=== PATIENT | female | born 1985 | race Caucasian/White ===

== ENCOUNTER 2024-05-03 19:56 | Emergency (ER) | payer SELFPAY ==
--- OUTSIDE RECORDS SUMMARY | 2024-05-03 20:01 | XMS_ITS | Clinical Summary ---
Author Organization [facility] Address [address] [place] [address] Care Team Providers Care Concrete Batch Plant Operator Name Role Phone Shannon Romero Dave NOLAN-WINE SPECIALIST Primary Care Provider [phone] Source Comments [facility],non-owned Affiliates and Associated Physician Practices is amultiple site organization consisting of ambulatory clinics and hospital sitesin [place], [place], [place] and [place]. This disclosure is being madepursuant to the Care Everywhere program and may not contain all information available regarding this patient. Last updated 17.[facility] Allergies Active Allergy Reactions Criticality Noted Date Comments Iodine Diarrhea,Rash,Nausea and/or Vomiting,Swelling Low 08/14/2012 Medications * Be aware that medications may not be up to date on this document. Alwaysverify current medications with the patient. Medication Sig Dispensed Refills Start Date End Date Status amLODIPine (Norvasc) 5 MG tablet Take 1 (one) tablet by mouth once daily Active hydroCHLOROthiazide (Hydrodiuril) 25 MG tablet Take 1 (one) tablet by mouth once daily Active naproxen (Naprosyn) 500 MG tablet Take 1 (one) tablet by mouth 2 times daily as needed for Pain 10 tablet 04/08/2022 Active clonazePAM (KlonoPIN) 0.5 MG tabletIndications:Anx iety Take 1 (one) tablet by mouth 2 times daily as needed for Anxiety 30 tablet 1 08/19/2023 Active desvenlafaxine succinate ER 24hr (Pristiq) 100 MG tabletIndications:Bip olar 1 disorder, depressed, full remission (HCC) Take 1 (one) tablet by mouth once daily 30 tablet 11 08/19/2023 Active lamoTRIgine (LaMICtal) 100 MG tabletIndications:Bip olar 1 disorder, depressed, full remission (HCC) 2 TAB AT BEDTIME 60 tablet 11 08/19/2023 Active Active Problems Problem Noted Date Diagnosed Date Bipolar affective disorder, currently manic, mod erate 01/20/2019 Allergic rhinitis 08/14/2012 Immunizations Name Administration Dates Next Due INFLUENZA VACCINE 01/09/2012,01/20/2011 INFLUENZA VACCINE, QUADR. (F LUZONE; FLULAVAL; FLUARIX; AFLURIA QUADRIVALENT; 6MO+), 0.5 ML (IIV4) 01/21/2019 MMR 01/09/2012 TDAP (7yrs+) 10/07/2011 Family History Medical History Relation Name Comments Cancer - Prostate Maternal Grandfather Diabetes Maternal Grandmother Diabetes Mother Heart Disease Mother Hypertension Mother Heart Disease Paternal Grandfather Cancer - Other Paternal Grandmother uteri ne Relation Name Status Comments Maternal Grandfather Maternal Grandmother Mother Alive Paternal Grandfather Paternal Grandmother Social History Tobacco Use Types Packs/Day Years Used Date Smoking Tobacco: Never Smokeless Tobacco: Never Tobacco Cessation:Counseling Given: Yes Comments:nonsmoker Alcohol Use Standard Drinks/Week Comments No 0 (1 standard drink = 0.6 oz pur e alcohol) doesn't drink Sex and Gender Information Value Date Recorded Sex Assigned at Not on file Gender Identity Not on file Sexual Orientation Not on file Last Filed Vital Signs Vital Sign Reading Time Taken Comments Blood Pressure 136/85 02/12/2023 12:58 PM TRANSIT MIXER OPERATOR Pulse 86 02/12/2023 12:58 PM TRANSIT MIXER OPERATOR Temperature 36.9 ??C (98.5 ??F) 04/08/2022 5:30 PM CS T Respiratory Rate 18 04/08/2022 5:30 PM TRANSIT MIXER OPERATOR Oxygen Saturation 99% 04/08/2022 5:30 PM TRANSIT MIXER OPERATOR Inhaled Oxygen Concentration - - Weight 137.9 kg (304 lb) 08/19/2023 3:16 PM CDT Height 172.7 cm (5' 8 ) 04/08/2022 5:30 PM TRANSIT MIXER OPERATOR Body Mass Index 46.22 04/08/2022 5:30 PM TRANSIT MIXER OPERATOR Plan of Treatment Upcoming Encounters Date Type Department Care Team (Late st Contact Info) Description 08/17/2024 1:00 PM CDT Office Visit [facility] Behavioral Health [address] [place] [address] Ricki Dalal MD [address] [place] [address] Bernie Reynolds, CHAIN BUILDER-WINE SPECIALIST [address] [place] [address] Health Maintenance Due Date Last Done Comments HIV SCREENING 09/18/2002 HEPATITIS C SCREENING 09/14/2005 HEPATITIS B VACCINE (1 of 3 - 19+ 3-dose series) 09/18/2006 PAP SMEAR 02/21/2016 02/20/2013 (Prev iously completed), 02/21/2012 (Previously completed) DTAP/TDAP/TD VACCINES (2 - Td or Tdap) 10/06/2021 10/07/2011 COVID-19 VACCINE ( - season) 2023 INFLUENZA VACCINE (#1) 2023 9, 02/13/2016, 01/09/2012, Additional history exists ZOSTER VACCINE (1 of 2) 09/18/2037 HIB VACCINE Aged Out No longer eligi ble based on patient's age to complete this topic HPV VACCINE Aged Out No longer eligi ble based on patient's age to complete this topic MENINGOCOCCAL (Group B) VACCINE Aged Out No longer eligible based on patient's age to complete this topic MENINGOCOCCAL VACCINE Aged Out No jose antonio mary ellen eligible based on patient's age to complete this topic PNEUMOCOCCAL VACCINE Aged Out No long er eligible based on patient's age to complete this topic Advance Directives * Full Code (Latest Code Status on File) Date Activated Date Inactivated Comments 01/20/2019 9:14 PM 01/27/2019 2:23 PM Care Teams Concrete Batch Plant Operator Relationship Specialty Start Date End Date Shannon Romero APRN-WINE SPECIALIST [address] [place] [id number] PCP - General Nurse Practitioner 04/05/16
--- OUTSIDE RECORDS SUMMARY | 2024-05-03 20:01 | XMS_ITS | Referral Summary ---
Author Organization [facility] Address [address] [place] [address] Care Team Providers Care Senior Technical Manager Name Role Phone Shannon Romero Dave NOLAN-PRODUCTION WEIGHER Primary Care Provider [phone] Source Comments [facility],non-owned Affiliates and Associated Physician Practices is amultiple site organization consisting of ambulatory clinics and hospital sitesin [place], [place], [place] and [place]. This disclosure is being madepursuant to the Care Everywhere program and may not contain all information available regarding this patient. Last updated 17.[facility] [employer] Allergies Active Allergy Reactions Criticality Noted Date [...] (IIV4) 01/21/2019 MMR 01/09/2012 TDAP (7yrs+) 10/07/2011 Social History Tobacco Use Types Packs/Day Years [...] Comments Blood Pressure 136/85 02/12/2023 12:58 PM CORPORATE FINANCIAL ANALYST Pulse 86 02/12/2023 12:58 PM CORPORATE FINANCIAL ANALYST Temperature 36.9 ??C (98.5 ??F) 04/08/2022 5:30 PM CS T Respiratory Rate 18 04/08/2022 5:30 PM CORPORATE FINANCIAL ANALYST Oxygen Saturation 99% 04/08/2022 5:30 PM CORPORATE FINANCIAL ANALYST Inhaled Oxygen Concentration - - Weight 137.9 kg (304 lb) 08/19/2023 3:16 PM CDT Height 172.7 cm (5' 8 ) 04/08/2022 5:30 PM CORPORATE FINANCIAL ANALYST Body Mass Index 46.22 04/08/2022 5:30 PM CORPORATE FINANCIAL ANALYST Functional Status Functional Status Response Date of Assess ment Is person deaf or have serious hearing difficult y? No 01/27/2019 Is person blind or have serious difficulty seein g? No 01/27/2019 Does person have serious dif ficulty walking/climbing stairs? No 01/27/2019 Does person have difficulty dressing/bathing? No 01/27/2019 Does person have difficulty doing errands alone? No 01/27/2019 Cognitive Status Response Date of Assessm ent Does person have difficulty concentrating/remembering/making decisions? No 01/27/2019 Plan of Treatment Upcoming Encounters Date Type Department Care Team (Late st Contact Info) Description 08/17/2024 1:00 PM CDT Office Visit [facility] [address] [place] [phone] Ricki Dalal MD [address] [place] [phone] Bernie Reynolds APRN-CNP [address] [place], [place] [id number] Advance Directives * Full Code (Latest Code Status on File) Date Activated Date Inactivated Comments 01/20/2019 9:14 PM 01/27/2019 2:23 PM Care Teams Senior Technical Manager Relationship Specialty Start Date End Date Shannon Romero APRN-PRODUCTION WEIGHER [address] [place] [address] PCP - General Nurse Practitioner 04/05/16
--- OUTSIDE RECORDS SUMMARY | 2024-05-03 20:01 | XMS_ITS | Patient Health Summary ---
Author Organization [facility] Address [address] [place] [address] Care Team Providers Care Weapons Specialist Name Role Phone Shannon Romero Dave NOLAN-PIGMENT MIXER Primary Care Provider [phone] Note from [facility],non-owned Affiliates and Associated Physician Practices is amultiple site organization consisting of ambulatory clinics and hospital sitesin [place], [place], [place] and [place]. This disclosure is being madepursuant to the Care Everywhere program and may not contain all information available regarding this patient. Last updated 17.[facility] Allergies * Iodine(Diarrhea,Rash,Nausea and/or Vomiting,Swelling) -Low Criticality Medications * Be aware that medications may not be up to date on this document. Alwaysverify current medications with the patient. * amLODIPine (Norvasc) 5 MG tablet Take 1 (one) tablet by mouth once daily * hydroCHLOROthiazide (Hydrodiuril) 25 MG tablet Take 1 (one) tablet by mouth once daily * naproxen (Naprosyn) 500 MG tablet(Started 04/08/2022) Take 1 (one) tablet by mouth 2 times daily as needed for Pain * clonazePAM (KlonoPIN) 0.5 MG tablet(Started 08/19/2023) Take 1 (one) tablet by mouth 2 times daily as needed for Anxiety 1 refill by 02/15/2024 * desvenlafaxine succinate ER 24hr (Pristiq) 100 MG tablet(Started 08/19/2023) Take 1 (one) tablet by mouth once daily 11 refills by 08/18/2024 * lamoTRIgine (LaMICtal) 100 MG tablet(Started 08/19/2023) 2 TAB AT BEDTIME 11 refills by 08/18/2024 Active Problems Problem Noted Date Diagnosed Date Bipolar affective disorder, currently manic, mod erate 01/20/2019 Allergic rhinitis 08/14/2012 Immunizations * INFLUENZA VACCINE(Given 01/09/2012, 01/20/2011) * INFLUENZA VACCINE, QUADR. (FLUZONE; FLULAVAL; FLUARIX; AFLURIA QUADRIVALENT; 6MO+), 0.5 ML (IIV4)(Given 01/21/2019) * MMR(Given 01/09/2012) * TDAP (7yrs+)(Given 10/07/2011) Social History Tobacco Use Types Packs/Day Years [...] Comments Blood Pressure 136/85 02/12/2023 12:58 PM DROP HAMMER PILE DRIVER OPERATOR Pulse 86 02/12/2023 12:58 PM DROP HAMMER PILE DRIVER OPERATOR Temperature 36.9 ??C (98.5 ??F) 04/08/2022 5:30 PM CS T Respiratory Rate 18 04/08/2022 5:30 PM DROP HAMMER PILE DRIVER OPERATOR Oxygen Saturation 99% 04/08/2022 5:30 PM DROP HAMMER PILE DRIVER OPERATOR Inhaled Oxygen Concentration - - Weight 137.9 kg (304 lb) 08/19/2023 3:16 PM CDT Height 172.7 cm (5' 8 ) 04/08/2022 5:30 PM DROP HAMMER PILE DRIVER OPERATOR Body Mass Index 46.22 04/08/2022 5:30 PM DROP HAMMER PILE DRIVER OPERATOR Procedures * XR ANKLE RIGHT 3VW OR MORE(Performed 04/08/2022) Performed for Fall, initial encounter * XR FOOT RIGHT 3VW OR MORE(Performed 04/08/2022) Performed for Fall, initial encounter * SARS-COV-2 (COVID-19) IN HOUSE(Performed 10/11/2019) Performed for Exposure to SARS-associated coronavirus * LITHIUM LEVEL(Performed 01/25/2019) * HEMOGLOBIN A1C(Performed 01/22/2019) * LIPID PROFILE(Performed 01/22/2019) * TSH(Performed 01/20/2019) * SALICYLATE LEVEL BLOOD(Performed 01/20/2019) * COMPREHENSIVE METABOLIC PANEL(Performed 01/20/2019) * CBC W AUTO DIFFERENTIAL(Performed 01/20/2019) * ALCOHOL ETHYL BLOOD(Performed 01/20/2019) * ACETAMINOPHEN LEVEL(Performed 01/20/2019) * URINE MICROSCOPIC ONLY REFLEX TO CULTURE(Performed 01/20/2019) * HCG URINE QUALITATIVE(Performed 01/20/2019) * URINALYSIS REFLEX MICROSCOPIC REFLEX CULTURE(Performed 01/20/2019) * DRUG ABUSE URINE SCREEN 10(Performed 01/20/2019) * US PELVIS LIMITED(Performed 04/05/2016) Performed for fever (HCC), Abdominal pain, generalized * URINE MICROSCOPIC ONLY REFLEX TO CULTURE(Performed 04/05/2016) * URINALYSIS REFLEX MICROSCOPIC REFLEX CULTURE(Performed 04/05/2016) * CULTURE URINE(Performed 04/05/2016) * CULTURE BLOOD(Performed 04/05/2016) * LACTIC ACID BLOOD(Performed 04/05/2016) * COMPREHENSIVE METABOLIC PANEL(Performed 04/05/2016) * CBC W AUTO DIFFERENTIAL(Performed 04/05/2016) * CULTURE BLOOD(Performed 04/05/2016) * T4 FREE(Performed 07/27/2013) Performed for History of hypothyroidism * TSH(Performed 07/27/2013) Performed for History of hypothyroidism * COMPREHENSIVE METABOLIC PANEL(Performed 07/27/2013) Performed for Fatigue * CBC W AUTO DIFFERENTIAL(Performed 07/27/2013) Performed for Fatigue Results * XR ANKLE RIGHT 3VW OR MORE (04/08/2022 6:18 PM DROP HAMMER PILE DRIVER OPERATOR) Anatomical Region Laterality Modality Lower Extremity Radiographic Mariann ging 04/08/2022 6:31 PM DROP HAMMER PILE DRIVER OPERATOR Narrative 04/08/2022 6:33 PM DROP HAMMER PILE DRIVER OPERATOR PROCEDURE(s): XR FOOT RIGHT 3VW OR MORE, XR ANKLE RIGHT 3VW OR MORE; DATE AND TIME OF EXAM(s): 04/08/2022 6:18 PM; LOCATION: [facility] INDICATION(s): W19.XXXA: Unspecified fall, initial encounter. Right ankle and foot pain. COMPARISON(s): None available. FINDINGS/IMPRESSION: No acute fracture or dislocation is seen. No significant osteoarthritic degenerative changes are seen. The soft tissues are unremarkable. > Interpreting Provider: Giancarlo Heart MD on 04/08/2022 6:33 PM Procedure Note Giancarlo Heart MD - 04/08/2022 PROCEDURE(s): XR FOOT RIGHT 3VW OR MORE, XR ANKLE RIGHT 3VW OR MORE;DATE AND TIME OF EXAM(s): 04/08/2022 6:18 PM; LOCATION: [facility] INDICATION(s): W19.XXXA: Unspecified fall, initial encounter. Right ankle and footpain. COMPARISON(s): None available. FINDINGS/IMPRESSION: No acute fracture or dislocation is seen. No significant osteoarthritic degenerative changes are seen. The soft tissues are unremarkable. > Interpreting Provider: Giancarlo Heart MD on 04/08/2022 6:33 PM Brittany Tian PA-C DIAGNOSTIC IMAGI NG ORDERABLES * XR FOOT RIGHT 3VW OR MORE (04/08/2022 6:10 PM DROP HAMMER PILE DRIVER OPERATOR) Anatomical Region Laterality Modality Ankle / Foot Radiographic Mariann ging 04/08/2022 6:31 PM DROP HAMMER PILE DRIVER OPERATOR Narrative 04/08/2022 6:33 PM DROP HAMMER PILE DRIVER OPERATOR PROCEDURE(s): XR FOOT RIGHT 3VW OR MORE, XR ANKLE RIGHT 3VW OR MORE; DATE AND TIME OF EXAM(s): 04/08/2022 6:18 PM; LOCATION: [facility] INDICATION(s): W19.XXXA: Unspecified fall, initial encounter. Right ankle and foot pain. COMPARISON(s): None available. FINDINGS/IMPRESSION: No acute fracture or dislocation is seen. No significant osteoarthritic degenerative changes are seen. The soft tissues are unremarkable. > Interpreting Provider: Giancarlo Heart MD on 04/08/2022 6:33 PM Procedure Note Giancarlo Heart MD - 04/08/2022 PROCEDURE(s): XR FOOT RIGHT 3VW OR MORE, XR ANKLE RIGHT 3VW OR MORE;DATE AND TIME OF EXAM(s): 04/08/2022 6:18 PM; LOCATION: [facility] INDICATION(s): W19.XXXA: Unspecified fall, initial encounter. Right ankle and footpain. COMPARISON(s): None available. FINDINGS/IMPRESSION: No acute fracture or dislocation is seen. No significant osteoarthritic degenerative changes are seen. The soft tissues are unremarkable. > Interpreting Provider: Giancarlo Heart MD on 04/08/2022 6:33 PM Brittany Tian PA-C DIAGNOSTIC IMAGI NG ORDERABLES * COVID-19 VIRUS (CORONAVIRUS) [facility] MICRO (10/11/2019 1:51 PM CDT) COVID-19 PCR Not detected Not detected, Invalid 10/13/2019 5:16 PM CDT [facility] Microbiology SPECIMEN FROM NASOPHARYNGEAL STRUCTURE / Unknown Collection / Unknown 10/11/2019 1:51 PM CDT 10/11/2019 1:51 PM CDT Narrative [facility] - 10/13/2019 5:16 PM CDT This nucleic acid amplification assay performance was validated by [facility]. This test has been authorized by the Food and Drug administration (FDA)under an Emergency??Use Authorization (EUA). This test has been validated in accordance with the FDA's guidance document Policy for Diagnostic Testing in Laboratories Certified to perform High Complexity Testing under CLIA prior to Emergency Use Authorization for Coronavirus Disease-2019 during the Public Health Emergency issued on June 06, 2019. FDA independent review of this validation is pending. This test is only authorized for the duration of time the declaration that circumstances exist justifying the authorization of emergency use of in vitro diagnostic tests for detection of SARS-CoV-2 virus and/or diagnosis of COVID-19 infection under section 564(b)(1) of the Act, 21 U.S.C 360bbb-3 (b)(1), unless the authorization is terminated or revoked sooner. Roscoe Mantilla PA-C LAB - MICROBIOLOGY O RDERABLES [facility] [address] [place], [place] [address], [facility] [phone] * (ABNORMAL) LITHIUM LEVEL (01/25/2019 6:23 AM CDT) [place] 0.4(L) 0.6 - 1.2 mmol/L 01/25/2019 6:50 AM CDT [facility] Blood BLOOD SPECIMEN / Unknown Lab Venipuncture / Unknown 01/25/2019 6:23 AM CDT 01/25/2019 6:30 AM CDT Sarah Eddy MD LAB - CHEMISTRY [facility] Organization Address City/State/ZIP Co de Phone Number [facility] [address] * HEMOGLOBIN A1C (01/22/2019 6:35 AM CDT) Hemoglobin A1c 5.2 4.2 - 5.6 % 01/22/2019 7:17 AM CDT [facility] Estimated Average Glucose 103 mg/dL 01/22/2019 7:17 AM CDT [facility] Blood BLOOD SPECIMEN / Unknown Lab Venipuncture / Unknown 01/22/2019 6:35 AM CDT 01/22/2019 7:05 AM CDT Narrative [facility] - 01/22/2019 7:17 AM CDT The following cutoff levels are recommended by [place] [employer]. ?? A1c ??> 6.5% : considered as diabetes if two separate tests >6.5% or in an appropriate clinical setting. A1c ??5.7% - 6.4% : considered as prediabetes (suggest increased risk for diabetes and cardiovascular disease) Control target level: ??Should be individualized. ??< 7 ??for general (non- ) , ??< 8% less stringent goal, ??< 6.5 ??more stringent goal. Hemoglobin A1c measurements are used as an aid in the diagnosis of diabetic mellitus, as an aid to identify patients who may be at the risk for developing diabetic mellitus, and for the monitoring long-term blood glucose control in individuals with diabetes mellitus. ??This test should not replace glucose testing for patients with Type 1 diabetes, pediatric patients, or women. ??Falsely low HbA1c results may be observed in patients with clinical conditions that shorten erythrocyte life span or decrease mean erythrocyte age such as the presence of unstable hemoglobin variants, elevated hemoglobin F level ??or other causes of hemolytic anemia . ??HbA1c may not accurately reflect glycemic control when clinical conditions that affect erythrocyte survival are present. ??Severe Iron deficiency anemia may yield falsely high results. ??Hemoglobin A1c assay should not be used to diagnose or monitor diabetes in patients with malignancy, recent blood transfusion, chronic kidney or liver disease and interpretation. ?? This method may yield falsely low results when hemoglobin (HbF) exceeds 5% in the specimen. Sarah Eddy MD LAB - CHEMISTRY [facility] Organization Address City/State/[facility] Co de Phone Number [facility] [address] * LIPID PROFILE (01/22/2019 6:35 AM CDT) [facility] Cholesterol 183 <200 mg/dL 01/22/2019 7:31 AM T [facility] Triglycerides 86 <150 mg/dL 01/22/2019 7:31 AM CDT [facility] HDL Cholesterol 70 >40 mg/dL 9 7:31 AM T [facility] Chol HDL Ratio 2.6 1.0 - 6.0 01/22/2019 7:31 AM T [facility] LDL Calculated 96 65 - 130 mg/dL 01/22/2019 7:31 AM T [facility] VLDL Calculated 17 10 - 40 mg/dL 01/22/2019 7:31 AM T [facility] Blood BLOOD SPECIMEN / Unknown Lab Venipuncture / Unknown 01/22/2019 6:35 AM CDT 01/22/2019 7:05 AM CDT Narrative [facility] - 01/22/2019 7:31 AM CDT Lipid Profile Comment: CHOLESTEROL LEVEL..................CLINICAL INTERPRETATION LESS THAN 200 MG/DL..............................DESIRABLE 200-239 MG/DL..............................BORDERLINE HIGH GREATER THAN 240 MG/DL................................HIGH LDL-CHOLESTEROL LEVEL..............CLINICAL INTERPRETATION LESS THAN 100 MG/DL................................OPTIMAL 100-129 MG/DL.................................NEAR OPTIMAL GREATER THAN 160 MG/DL...........................HIGH RISK HDL RISK LEVEL GREATER THEN 60 MG/DL............................DECREASED 40-60 MG/DL........................................AVERAGE LESS THAN 40 MG/DL...............................INCREASED TRIGLYCERIDE LEVEL..................CLINICAL INTERPRETATION LESS THAN 150 MG/DL...............................DESIRABLE 150-199 MG/DL...............................BORDERLINE HIGH 200-499 MG/DL..........................................HIGH GREATER THAN 500..................................VERY HIGH THE NATIONAL CHOLESTEROL EDUCATION PROGRAM HAS SET THE ABOVE GUIDELINES (REFERANCE VALUES) FOR CHOLESTEROL AND HDL. RISK ASSOCIATED WITH CHOLESTEROL/HDL RATIOS RISK....................MALE RATIO.............FEMALE RATIO 1/2 AVERAGE.................<3.4.......................<3.3 LOW RISK.................... 4.0 ...................... 3.8 AVERAGE..................... 5.0 ...................... 4.5 2X AVERAGE.................. 9.5 ...................... 7.0 3X AVERAGE...................>23........................>11 Sarah Eddy MD LAB - CHEMISTRY [facility] Organization Address City/State/[facility] Co de Phone Number [facility] [address] * (ABNORMAL) CBC W AUTO DIFFERENTIAL (01/20/2019 7:23 PM CDT) Only the most recent of3 resultswithin the time period is included. [facility] WBC 9.7 4.0 - 10.0 x10E9/L 01/20/2019 7:36 PM CDT [facility] RBC 4.63 3.93 - 5.22 x10E12/L 01/20/2019 7:36 PM CDT [facility] Hemoglobin 13.3 11.2 - 15.7 gm/dL 01/20/2019 7:36 PM CDT [facility] Hematocrit 40.0 34.1 - 44.9 % 01/20/2019 7:36 PM [facility] MCV 86.4 78.0 - 100.0 fl 01/20/2019 7:36 PM [facility] MCH 28.7 25.6 - 34.0 pg 01/20/2019 7:36 PM [facility] MCHC 33.3 32.3 - 36.5 gm/dL 01/20/2019 7:36 PM [facility] RDW 13.5 11.6 - 14.4 % 01/20/2019 7:36 PM [facility] MPV 9.5 9.4 - 12.4 fl 01/20/2019 7:36 PM [facility] Platelet Count 302 163 - 369 x10E9/L 01/20/2019 7:36 PM [facility] Neutrophils % 65.7 40.0 - 75.0 % 01/20/2019 7:36 PM [facility] Lymphocytes % 26.1 19.3 - 53.1 % 01/20/2019 7:36 PM [facility] Monocytes % 6.3 4.7 - 12.5 % 01/20/2019 7:36 PM [facility] Eosinophils % 1.4 0.7 - 7.0 % 01/20/2019 7:36 PM [facility] Basophils % 0.3 0.1 - 1.2 % 01/20/2019 7:36 PM [facility] Immature Granulocytes 0.2 0 - 0.5 % 01/20/2019 7:36 PM [facility] Neutrophil Absolute 6.35(H) 1.56 - 6.13 x10E9/L 01/20/2019 7:36 PM [facility] Lymphocytes Absolute 2.52 1.18 - 3.74 x10E9/L 01/20/2019 7:36 PM [facility] Monocytes Absolute 0.61 0.24 - 0.86 x10E9/L 01/20/2019 7:36 PM [facility] Eosinophils Absolute 0.14 0.04 - 0.54 x10E9/L 01/20/2019 7:36 PM [facility] Basophils Absolute 0.03 0.01 - 0.08 x10E9/L 01/20/2019 7:36 PM [facility] Immature Granulocytes Absolute 0.02 0 - 0.03 x10E9/L 01/20/2019 7:36 PM CDT [facility] nRBC Auto 0 <=0 /100 WBC 01/20/2019 7:36 PM CDT [facility] nRBC Absolute 0.00 <=0 x10E9/L 01/20/2019 7:36 PM T [facility] Blood BLOOD SPECIMEN / Unknown Lab Venipuncture / Unknown 01/20/2019 7:23 PM CDT 01/20/2019 7:28 PM CDT Josefina Harman MD LAB - HEMATOLOGY ORDERABLES [facility] [address] * COMPREHENSIVE METABOLIC PANEL (01/20/2019 7:23 PM CDT) Only the most recent of3 resultswithin the time period is included. Glucose 108 70 - 125 mg/dL 01/20/2019 7:51 PM [facility] Sodium 141 136 - 145 mmol/L 01/20/2019 7:51 PM [facility] Potassium 4.0 3.4 - 4.5 mmol/L 01/20/2019 7:51 PM T [facility] Chloride 107 98 - 107 mmol/L 01/20/2019 7:51 PM T [facility] CO2 23 22 - 29 mmol/L 01/20/2019 7:51 PM T [facility] Calcium 9.3 8.4 - 10.2 mg/dL 01/20/2019 7:51 PM [facility] Anion Gap 15 10 - 20 mmol/L 01/20/2019 7:51 PM [facility] BUN 15.4 9.8 - 20.1 mg/dL 01/20/2019 7:51 PM T [facility] Creatinine 0.79 0.57 - 1.11 mg/dL 01/20/2019 7:51 PM T [facility] eGFR by MDRD >60 >60 mL/min/1.7 3m2 01/20/2019 7:51 PM T [facility] eGFR by MDRD >60 >60 mL/min/1.7 3m2 01/20/2019 7:51 PM T [facility] Alkaline Phosphatase 106 40 - 150 U/L 01/20/2019 7:51 PM CDT [facility] ALT 15 5 - 55 U/L 01/20/2019 7:51 PM CDT [facility] AST 14 5 - 34 U/L 01/20/2019 7:51 PM CDT [facility] Protein Total 7.1 6.4 - 8.3 gm/dL 01/20/2019 7:51 PM CDT [facility] Albumin 4.1 3.5 - 5.0 gm/dL 01/20/2019 7:51 PM CDT [facility] Globulin Total 3.0 2.6 - 4.0 gm/dL 01/20/2019 7:51 PM CDT [facility] Albumin/Globulin Ratio 1.4 0.9 - 1.6 01/20/2019 7:51 PM CDT [facility] Bilirubin Total 0.3 0.2 - 1.2 mg/dL 01/20/2019 7:51 PM CDT [facility] Blood BLOOD SPECIMEN / Unknown Lab Venipuncture / Unknown 01/20/2019 7:23 PM CDT 01/20/2019 7:28 PM CDT Josefina Harman MD LAB - CHEMISTRY ORDERABLES Performing Organization Address [facility] de Phone Number [facility] [address] * ALCOHOL ETHYL BLOOD (01/20/2019 7:23 PM CDT) Pathologist [facility] Ethanol <10.0 <10 mg/dL 01/20/2019 7:5 1 PM CDT [facility] Blood BLOOD SPECIMEN / Unknown Lab Venipuncture / Unknown 01/20/2019 7:23 PM CDT 01/20/2019 7:28 PM CDT Narrative [facility] - 01/20/2019 7:51 PM CDT For Medical Use Only Josefina Harman MD LAB - CHEMISTRY ORDERABLES Performing Organization Address [facility] Co de Phone Number [facility] [address] * TSH (01/20/2019 7:23 PM CDT) Only the most recent of2 resultswithin the time period is included. TSH 0.933 0.35 - 4.94 uIU/mL 01/20/2019 8:11 PM CDT [facility] Blood BLOOD SPECIMEN / Unknown Lab Venipuncture / Unknown 01/20/2019 7:23 PM CDT 01/20/2019 7:28 PM CDT Josefina Harman MD LAB - CHEMISTRY ORDERABLES Performing Organization Address [facility]/ZIP Co de Phone Number [facility] [address] [place] [address] * (ABNORMAL) SALICYLATE LEVEL BLOOD (01/20/2019 7:23 PM CDT) Salicylate <5.0(L) 15.0 - 30.0 mg/dL 01/20/2019 7:51 PM CDT [facility] Blood BLOOD SPECIMEN / Unknown Lab Venipuncture / Unknown 01/20/2019 7:23 PM CDT 01/20/2019 7:28 PM CDT Josefina Harman MD LAB - CHEMISTRY ORDERABLES Performing Organization Address [facility] Co de Phone Number [facility] [address] [place] [address] * (ABNORMAL) ACETAMINOPHEN LEVEL (01/20/2019 7:23 PM CDT) Acetaminophen <0.6(L) 10.0 - 30.0 ug/mL 01/20/2019 7:51 PM CDT [facility] Blood BLOOD SPECIMEN / Unknown Lab Venipuncture / Unknown 01/20/2019 7:23 PM CDT 01/20/2019 7:28 PM CDT Narrative [facility] - 01/20/2019 7:51 PM CDT Significantly reduced Acetaminophen recovery has been demonstrated in situations where testing has been performed immediately after introduction of N- acetylcysteine (NAC). Josefina Harman MD LAB - CHEMISTRY ORDERABLES Performing Organization Address [facility]/ZIP Co de Phone Number [facility] [address] [place] [address] * DRUG ABUSE URINE SCREEN 10 (01/20/2019 6:41 PM CDT) Amphetamines Screen Urine Negative Negative 01/20/2019 6:58 PM CDT [facility] Barbiturates Screen Urine Negative Negative 01/20/2019 6:58 PM CDT [facility] Benzodiazepines Screen Urine Negative Negative 01/20/2019 6:58 PM CDT [facility] Cannabinoids Screen Urine Negative Negative 01/20/2019 6:58 PM CDT [facility] Cocaine Screen Urine Negative Negative 01/20/2019 6:58 PM CDT [facility] Methadone Screen Urine Negative Negative 01/20/2019 6:58 PM CDT [facility] Opiate Screen Urine Negative Negative 01/20 6:58 PM CDT [facility] Phencyclidine Screen Urine Negative Negative 01/20/2019 6:58 PM CDT [facility] Tricyclics Screen Urine Negative Negative 01/20/2019 6:58 PM CDT [facility] Methamphetamine Screen Urine Negative Negative 01/20/2019 6:58 PM CDT [facility] Buprenorphine Screen Urine Negative Negative 01/20/2019 6:58 PM CDT [facility] Oxycodone Screen Urine Negative Negative 01/20/2019 6:58 PM CDT [facility] Propoxyphene Screen Urine Negative Negative 01/20/2019 6:58 PM CDT [facility] Urine URINE / Unknown Collection / Unknown 01/20/2019 6:41 PM CDT 01/20/2019 6:46 PM CDT Narrative [facility] - 01/20/2019 6:58 PM CDT This is a presumptive/unconfirmed test for medical treatment purposes only. Clinical consideration and professional judgment should be applied when using presumptive results. If confirmatory testing, such as gas chromatography-mass spectrometry (GC/MS), of any positive results of this test is required, please notify the laboratory within 7 days of collection. This test is intended only for monitoring or management of patients. It is not intended for use in job-related and/or legal-related purposes. The cutoff value for each analyte is: Barbiturates.....200 ng/mL ?? Benzodiazepines......150 ng/mL Cocaine..........150 ng/mL ?? Opiates..............100 ng/mL Phencyclidine.....25 ng/mL ?? Tricyclics...........300 ng/mL Cannabinoid.......50 ng/mL ?? Amphetamines.........500 ng/mL Methadone........200 ng/mL ?? Methamphetamines.....500 ng/mL Buprenorphine.....10 ng/mL ?? Oxycodone............100 ng/mL Propoxyphene.....300 ng/mL Josefina Harman MD LAB - URINE CHEM ISTRY ORDERABLES Performing Organization Address [facility] de Phone Number [facility] [facility] [address] * URINE MICROSCOPIC ONLY REFLEX TO CULTURE (01/20/2019 6:41 PM CDT) Only the most recent of2 resultswithin the time period is included. Reflex Status Culture not indicated 01/20/2019 6:54 PM CDT [facility] RBC UA 3-5 None Seen, 0-2, 3-5 # /hpf 01/20/2019 6:54 PM CDT [facility] WBC UA 0-5 None Seen, 0-5 # /hpf 01/20/2019 6:54 PM CDT [facility] Bacteria UA None Seen None Seen 01/20/2019 6:54 PM CDT [facility] Squamous Epithelial Cells 0-2 None Seen, 0-2, 3-5 /hpf 01/20/2019 6:54 PM CDT [facility] Mucus UA 1+ /LPF 01/20/2019 6:54 PM CDT [facility] Urine URINE SPECIMEN OBTAINED BY CLEAN CATCH PROCEDURE / Unknown Collection / Unknown 01/20/2019 6:41 PM CDT 01/20/2019 6:46 PM CDT Narrative [facility] - 01/20/2019 6:54 PM CDT Josefina Harman MD LAB - URINALYSIS ORDERABLES Performing Organization Address [facility] Co de Phone Number [facility] [address] * (ABNORMAL) URINALYSIS REFLEX MICROSCOPIC REFLEX CULTURE (01/20/2019 6:41 PM CDT) Only the most recent of2 resultswithin the time period is included. Color UA Yellow Straw, Yellow 01/20/2019 6:52 PM CDT [facility] Clarity UA Clear Clear 01/20/2019 6:52 PM CDT [facility] Glucose UA Negative Negative 01/20/2019 6:52 PM CDT [facility] Bilirubin UA Negative Negative 01/20/2019 6:52 PM CDT [facility] Ketone UA Negative Negative 01/20/2019 6:52 PM CDT [facility] Specific [place] UA 1.018 1.005 - 1.030 01/20/2019 6:52 PM CDT [facility] Blood UA 1+(A) Negative 01/20/2019 6:52 PM CDT [facility] pH UA 6.0 5.0 - 8.0 pH 01/20/2019 6:52 PM CDT [facility] Protein UA Negative Negative 01/20/2019 6:52 PM CDT [facility] Urobilinogen UA Negative Negative mg/dL 01/20/2019 6:52 PM CDT [facility] Nitrite UA Negative Negative 01/20/2019 6:52 PM CDT [facility] Leukocyte UA Negative Negative 01/20/2019 6:52 PM CDT [facility] Urine Microscopy Urine microscopy to follow 01/20/2019 6:52 PM CDT [facility] Urine URINE SPECIMEN OBTAINED BY CLEAN CATCH PROCEDURE / Unknown Collection / Unknown 01/20/2019 6:41 PM CDT 01/20/2019 6:46 PM CDT Narrative [facility] - 01/20/2019 6:52 PM CDT Josefina Harman MD LAB - URINALYSIS ORDERABLES Performing Organization Address City/State/[facility] de Phone Number [facility] [address] * HCG URINE QUALITATIVE (01/20/2019 6:41 PM CDT) hCG Qualitative Urine Negative Negative 01/20/2019 6:52 PM CDT [facility] Specific [place] UA 1.018 1.005 - 1.030 01/20/2019 6:52 PM CDT [facility] Urine URINE / Unknown Collection / Unknown 01/20/2019 6:41 PM CDT 01/20/2019 6:46 PM CDT Josefina Harman MD LAB - URINALYSIS ORDERABLES [facility] [address] [place], [place] [id number] [place] [address] * US PELVIS LIMITED [id number] (04/05/2016 5:46 AM DROP HAMMER PILE DRIVER OPERATOR) Anatomical Region Laterality Modality Pelvis Ultrasound 04/05/2016 6:09 AM DROP HAMMER PILE DRIVER OPERATOR Impressions 04/05/2016 7:31 AM DROP HAMMER PILE DRIVER OPERATOR Negative pelvic sonogram. Narrative 04/05/2016 7:31 AM DROP HAMMER PILE DRIVER OPERATOR ULTRASOUND PELVIS 04/05/2016 CLINICAL HISTORY: fever. Multiple transverse and longitudinal sonographic images were obtained. FINDINGS: No evidence of retained products within the uterus. No abnormalities noted within the uterus. No free fluid. No adnexal mass lesion. Procedure Note Jazmin Gamboa MD - 04/05/2016 ULTRASOUND PELVIS 04/05/2016 CLINICAL HISTORY: fever. Multiple transverse and longitudinal sonographic images were obtained. FINDINGS: No evidence of retained products within the uterus. No abnormalities noted within the uterus. No free fluid. No adnexal mass lesion. IMPRESSION Negative pelvic sonogram. Josefina Harman MD ORDERABLES * (ABNORMAL) CULTURE URINE (04/05/2016 4:28 AM DROP HAMMER PILE DRIVER OPERATOR) Culture 10,000-50,000 CFU/mL Escherichia coli(A) AUTUMN 04/07/2016 10:10 AM DROP HAMMER PILE DRIVER OPERATOR [facility] Urine URINE SPECIMEN OBTAINED BY CLEAN CATCH PROCEDURE / Unknown 04/05/2016 4:28 AM DROP HAMMER PILE DRIVER OPERATOR 04/05/2016 4:37 AM DROP HAMMER PILE DRIVER OPERATOR Narrative Organism Antibiotic Method Susceptibility Escherichia coli Ampicillin AUTUMN >16 ug/mL: Resistant Escherichia coli Cefazolin AUTUMN <=8 ug/mL: Susceptible Escherichia coli Cefoxitin AUTUMN <=8 ug/mL: Susceptible Escherichia coli Ceftriaxone AUTUMN <=1 ug/mL: Susceptible Escherichia coli Cefuroxime AUTUMN <=4 ug/mL: Susceptible Escherichia coli Ciprofloxacin AUTUMN <=1 ug/mL: Susceptible Escherichia coli Gentamicin AUTUMN <=4 ug/mL: Susceptible Escherichia coli Levofloxacin AUTUMN <=2 ug/mL: Susceptible Escherichia coli Nitrofurantoin AUTUMN <=32 ug/mL: Susceptible Escherichia coli Trimethoprim-sulfamethoxazole AUTUMN <=2 ug/mL: Susceptible Josefina Harman MD LAB - MICROBIOLO GY ORDERABLES Performing Organization Address [facility] de Phone Number [facility] [address] [place] [address] * (ABNORMAL) CULTURE BLOOD (04/05/2016 4:21 AM DROP HAMMER PILE DRIVER OPERATOR) Only the most recent of2 resultswithin the time period is included. [facility] Culture Staphylococcus species (Coagulase Negative)(AA) AUTUMN 04/08/2016 2:03 PM DROP HAMMER PILE DRIVER OPERATOR [facility] Comment:PC Gram Stain Gram positive cocci 04/08/2016 2:03 PM [facility] Blood PERIPHERAL BLOOD / Unknown Lab Venipuncture / Unknown 04/05/2016 4:21 AM DROP HAMMER PILE DRIVER OPERATOR 04/05/2016 4:24 AM DROP HAMMER PILE DRIVER OPERATOR Narrative [facility] - 04/08/2016 2:03 PM DROP HAMMER PILE DRIVER OPERATOR 04/06/2016 10:27 AM ?? Verenice Katya RN notified of gpc. ??Read back and acknowledged results. Josefina Harman MD LAB - MICROBIOLO GY ORDERABLES Performing Organization Address [facility] de Phone Number [facility] [address] [place] [address] * LACTIC ACID BLOOD (04/05/2016 4:18 AM DROP HAMMER PILE DRIVER OPERATOR) [facility] Lactic Acid 0.65 0.5 - 2.2 mmol/L 04/05/2016 4:48 AM [facility] Blood BLOOD SPECIMEN / Unknown Lab Venipuncture / Unknown 04/05/2016 4:18 AM DROP HAMMER PILE DRIVER OPERATOR 04/05/2016 4:24 AM DROP HAMMER PILE DRIVER OPERATOR Josefina Harman MD LAB - CHEMISTRY ORDERABLES Performing Organization Address [facility] de Phone Number [address] * T4 FREE (07/27/2013 11:57 AM CDT) [facility] T4 Free 1.25 0.82 - 1.77 ng/dL [facility] ACCOUNT BILL Blood specimen (specimen) BLOOD SPECIMEN / Unknown 07/27/2013 11:57 AM CDT 07/27/2013 8:04 PM CDT Narrative Resulting Agency Comment [facility] [address] ??[facility] [phone] Katina Cooley APRN-PIGMENT MIXER LAB - CHEMISTRY OR DERABLES [facility] ACCOUNT BILL Care Teams Weapons Specialist Relationship Specialty Start Date End Date Shannon Romero APRN-PIGMENT MIXER [address] [place] [id number] PCP - General Nurse Practitioner 04/05/16
--- OUTSIDE RECORDS SUMMARY | 2024-05-03 20:01 | XMS_ITS | Clinical Summary ---
Author Organization [facility] Address [address] [place] [address]. [place], [place] [id number] [place] [id number] Care Team Providers Care Hot Repairman Name Role Phone Talha Duncan MD Primary Care Provider [phone] Allergies Active Allergy Reactions Criticality Noted Date Comments Iodine Unknown 06/19/2022 Medications amLODIPine (NORVASC) 5 MG tablet Take 1 tablet (5 mg total) by mouth. 06/13/2022 Active desvenlafaxine ER 100 MG TABLET SR 24 HR 24 hr tablet Take 1 tablet by mouth daily. 05/22/2022 Active hydroCHLOROthia zide (HYDRODIURIL) 25 MG tablet Take 1 tablet (25 mg total) by mouth. 06/13/2022 Active lamoTRIgine (LAMICTAL) 200 MG tablet Take 1 tablet (200 mg total) by mouth nightly at bedtime. at bedtime. 05/17/2022 Active albuterol sulfate HFA 108 (90 Base) MCG/ACT inhaler Inhale 2 puffs into the lungs every 6 (six) hours as needed for Wheezing. 6.7 g 06/19/2022 Active naproxen (NAPROSYN) 500 MG tablet Take 1 tablet (500 mg total) by mouth 2 (two) times daily with meals. 60 tablet 06/19/2022 Active Social History Tobacco Use Types Packs/Day Years Used Date Smoking Tobacco: Never Smokeless Tobacco: Never Tobacco Cessation:Counseling Given: Not Answered Alcohol Use Standard Drinks/Week Comments Yes 0 (1 standard drink = 0.6 oz pur e alcohol) socially Comments Unknown Sex and Gender Information Value Date Recorded Sex Assigned at Not on file Legal Sex Female 7:03 PM CDT Gender Identity Not on file Sexual Orientation Not on file Last Filed Vital Signs Vital Sign Reading Time Taken Comments Blood Pressure 134/89 06/19/2022 10:11 AM CDT Pulse 115 06/19/2022 8:27 AM CDT Temperature 36.5 ??C (97.7 ??F) 06/19/2022 10:11 AM C DT Respiratory Rate 18 06/19/2022 8:27 AM CDT Oxygen Saturation 98% 06/19/2022 10:11 AM CDT Inhaled Oxygen Concentration - - Weight 136.1 kg (300 lb) 06/19/2022 8:33 AM CDT Height 172.7 cm (5' 8 ) 06/19/2022 8:33 AM CDT Body Mass Index 45.61 06/19/2022 8:33 AM CDT Plan of Treatment Health Maintenance Due Date Last Done Comments Cervical Cancer Screening Pap Smear (Age 30 to 64) Every 3 Years 1987 Annual Physical 09/18/1990 PHQ-2 (Physician [place]ters) 1999 Hepatitis C 09/18/2005 Cervical Cancer Screening Pap with HPV Testing (Age 30 to 64) Every 5 Years 09/18/2017 Cervical Cancer Screening with HPV 09/18/2017 COVID-19 Vaccine ( season) 2023 Influenza Adult (#1) 2024 01/21/2019, 02/13/2016, 01/09/2012, Additional history exists PHQ-2 (Physician mth sense) 04/08/2024 DTaP, Tdap and Td Vaccines (10 - Td or Tdap) 02/12/2026 02/13/2016, 02/13/2016, 10/12/2011, Additional history exists Hepatitis B Vaccines Completed 06/25/1997, 01/13/1997, 12/08/1996 HPV Vaccines Aged Out No longer eligi ble based on patient's age to complete this topic Meningococcal B Vaccine Aged Out No l onger eligible based on patient's age to complete this topic Meningococcal Vaccine Aged Out No jose antonio mary ellen eligible based on patient's age to complete this topic Pneumococcal Vaccine: Pediatrics (0 to 5 Years) and At-Risk Patients (6 to 64 Years) Aged Out No longer eligible based on patient's age to complete this topic RSV Immunizations Under 20 Months Aged Out No longer eligible based on patient's age to complete this topic Insurance [employer] Care Teams Hot Repairman Relationship Specialty Start Date End Date Talha Duncan MD [address] [place] [address] PCP - General FAMILY PRACTICE 06/19/22
[2024-05-03 20:04] VITALS: BP 152/107; PULSE 100; RESP 20; TEMP 36.9; O2SAT 100
--- NOTE | 2024-05-11 16:12 | ED_ITS ---
HPI - Ear Problem General Chief complaint: Ear Stated complaint: Ear Pain Time Seen by Provider: 05/03/24 19:59 Source: patient Mode of arrival: ambulatory Limitations: no limitations History of Present Illness HPI Narrative: 38 yo F presents with c/o R ear pain for 2 to 3 days. Afebrile. Taking OTC pain meds without relief. Pain became unbearable tonight. All systems reviewed and negative except as noted above. Related Data Allergies Allergy/AdvReac Type Severity Reaction Status Date / Time iodine Allergy Mild Hives Verified 05/03/24 20:04 Review of Systems Review of Systems: CONSTITUTIONAL: Denies fever, chills, or sweats. EYES: Denies visual changes, redness, or discharge. ENT: Denies rhinorrhea, congestion, sore throat. Reports pain to R ear. CARDIOVASCULAR: Denies chest pain, palpitations, or edema. RESPIRATORY: Denies cough or dyspnea. GASTROINTESTINAL: Denies abdominal pain, nausea, vomiting, or diarrhea. GENITOURINARY: Denies dysuria or hematuria. SKIN: Denies rash or itching. MUSCULOSKELETAL: Denies back pain, joint pain, or myalgia. NEUROLOGIC: Denies headache, numbness, or weakness. PSYCHIATRIC: Denies anxiety or depression. All other systems reviewed are negative, except as documented in HPI. PMFSH Comments At time of signature, agree with nursing past medical, surgical, social and family history. There is no relevant family history pertinent to the presenting complaint. Exam Narrative: GENERAL: This is a well-nourished, well-developed patient, in no apparent distress. HEAD: normocephalic, atraumatic. EYES: PERRL. Sclera clear/white. Vision is grossly intact. EARS: External ears normal, auditory canals clear and without drainage, R TM er ythematous, retracted. L TM normal. no perforation bilaterally. Hearing grossly intact. NOSE: External nose normal NECK: Neck supple, non-tender without lymphadenopathy, masses or thyromegaly. CARDIOVASCULAR: Regular rate and rhythm without murmurs, gallops, or rubs. RESPIRATORY: Clear to auscultation. Breath sounds equal bilaterally. No wheezes, rales, or rhonchi. SKIN: warm, Dry, intact with no suspicious lesions or rash, good texture and turgor. NEURO: awake, alert, and oriented to person, place and time. There were no obvious focal neurologic abnormalities. EXTREMITIES: No joint tenderness, effusion, or edema noted. Course Course Level of Care: Express Care Visit Vital Signs Vital signs: Vital Signs Temperature 36.9 C 05/03/24 20:04 Pulse Rate 100 05/03/24 20:04 Respiratory Rate 20 05/03/24 20:04 Blood Pressure 152/107 H 05/03/24 20:04 Pulse Oximetry 100 05/03/24 20:04 Oxygen Delivery Room Air 05/03/24 20:04 Temperature 36.9 C 05/03/24 20:04 Pulse Rate 100 05/03/24 20:04 Respiratory Rate 20 05/03/24 20:04 Blood Pressure 152/107 H 05/03/24 20:04 Pulse Oximetry 100 05/03/24 20:04 Oxygen Delivery Room Air 05/03/24 20:04 Reviewed Medical Decision Making MDM Narrative Medical decision making narrative: will treat patient with antibiotic for right otitis media. Patient tearful in exam room. Recommend she alternate ibuprofen and Tylenol every 4 hours for pain control. Patient is aware of diagnosis, understands and agrees to treatment plan. Anticipatory guidance given. Patient agrees to follow-up as directed and is aware of reasons to seek care at the emergency department. Portions of this record may have been created with voice recognition software Vital Signs Vital Signs: Vital Signs Temperature 36.9 C 05/03/24 20:04 Pulse Rate 100 05/03/24 20:04 Respiratory Rate 05/03/24 20:04 Blood Pressure 152/107 H 05/03/24 20:04 Pulse Oximetry 100 05/03/24 20:04 Oxygen Delivery Room Air 05/03/24 20:04 Temperature 36.9 C 05/03/24 20:04 Pulse Rate 100 05/03/24 20:04 Respiratory Rate 05/03/24 20:04 Blood Pressure 152/107 H 05/03/24 20:04 Pulse Oximetry 100 05/03/24 20:04 Oxygen Delivery Room Air 05/03/24 20:04 Discharge Plan Discharge Clinical Impression: Acute otitis media, right Patient Disposition: Home, Self-Care Condition: Stable Instructions: Antibiotic Form, Ear Infection (ED) Additional Instructions: Take antibiotic as prescribed until gone. Alternate between Tylenol and ibuprofen every 4 hours to treat your pain. Follow-up with your primary care physician if symptoms are not improving. Patient Language: Urdu Prescriptions: New amoxicillin 875 mg tablet 875 mg PO Q12H 10 Days Qty: 20 0RF ibuprofen 600 mg tablet 600 mg PO Q6H PRN (Reason: pain) Qty: 30 0RF Follow-up/Referrals: UNKNOWN,DOCTOR [Primary Care Provider] - Time of Disposition: 20:05
== END 2024-05-03 20:10 | disposition home or self-care (01) ==
PROVIDERS: Emergency Provider Nurse Practitioner Family
DX: H66.91 Otitis media, unspecified, right ear (principal); I10 Essential (primary) hypertension; K21.9 Gastro-esophageal reflux disease without esophagitis; Z86.16 Personal history of COVID-19
CPT/HCPCS: 99213; G0463